=== PATIENT | male | born 1950 | race Caucasian/White ===

== ENCOUNTER 2021-05-30 20:57 | Emergency (ER) | payer OTHER ==
[2021-05-30 21:17] VITALS: BP 158/84; PULSE 73; TEMP 98.8; BMI 27.3
[2021-05-30 21:51] LABS: BASO % 1.4 % (0-2.0); EOS % 1.2 % (0-4.5); HEMATOCRIT 36.5 % (35.4-49); HEMOGLOBIN 12.1 GM/dl (11.7-16.9); LYMPH % 12.9 % (8-40); MCH 28.5 pg (25.7-33.7); MCHC 33.3 g/dl (32.0-35.9); MEAN CELL VOLUME 85.8 fl (80-96); MEAN PLT VOLUME 8.8 fl (7.5-11.1); MONO % 13.4 % (3.8-10.2); NEUT % 71.1 % (42.8-82.8); PLATELET COUNT 190 10^3/uL (134-434); RBC 4.26 M/mm3 (4.00-5.60)
[2021-05-30 21:53] LABS: INR 1.1 (0.82-1.09); PROTHROMBIN TIME (PATIENT) 12.2 SEC (10.2-13.0)
[2021-05-30 21:58] LABS: ALBUMIN 3.8 g/dl (3.4-5.0); BILIRUBIN,TOTAL 0.8 mg/dl (0.2-1); CREATININE 1.6 mg/dl (0.55-1.3); TOT PROT 6.2 g/dl (6.4-8.2)
[2021-05-30] MEDS ORDERED: VANCOMYCIN 1,000 MG VIAL (RESTRICTED TO ID ONLY) ONE (22:19)
[2021-05-30] MEDS ORDERED: VANCOMYCIN 1 GM in D5W (PRE-DOCKED) 1,000 MG/250 ML IVPB ONE (22:19)
== END 2021-05-30 23:43 | disposition home or self-care (01) ==
LOC: FER 20:57
DX: L03.116 Cellulitis of left lower limb (principal)
CPT/HCPCS: 36415; 80053; 85025; 85610; 93971-TC; 99284-25